=== PATIENT | female | born 1955 | race Caucasian/White ===

== ENCOUNTER 2018-08-16 01:01 | Emergency (ER) | payer BC, SELFPAY ==
[2018-08-16] MEDS ORDERED: HYDROcodone/Acetaminophen 10/325 mg Tablet ONE (01:32)
[2018-08-16] MEDS ORDERED: Acetaminophen 325 MG TAB ONE (01:32)
[2018-08-16] MEDS ORDERED: Dexamethasone 4 MG TAB ONE (01:32)
== END 2018-08-16 02:02 | disposition home or self-care (01) ==
LOC: MADERS 01:01
DX: S86.811A Strain of other muscle(s) and tendon(s) at lower leg level, right leg, initial encounter (principal); E78.5 Hyperlipidemia, unspecified; I10 Essential (primary) hypertension; E10.9 Type 1 diabetes mellitus without complications; M10.9 Gout, unspecified; F32.9 Major depressive disorder, single episode, unspecified; Z79.899 Other long term (current) drug therapy; X58.XXXA Exposure to other specified factors, initial encounter
CPT/HCPCS: 99283; J8540